=== PATIENT | male | born 1990 | race Caucasian/White ===

== ENCOUNTER 2022-05-14 03:43 | Emergency (ER) | payer OTHER ==
[~2022-05-14] VITALS: Ht 167.6 cm; Wt 54.4 kg
[2022-05-14 05:50] LABS: Source, Urine Voided
[2022-05-14 06:01] LABS: Appearance, Urine Clear (Clear); Bilirubin, Urine Neg (Neg); Blood, Urine 5+ (Neg); Color, Urine Yellow (P-Yellow); Glucose Qualitative, Urine Neg (Neg); Ketones, Urine Neg (Neg); Leukocyte Esterase, Urine Neg (Neg); Nitrite, Urine Neg (Neg); Protein, Urine 1+ (Neg); Urobilinogen, Urine NORM (Normal)
[2022-05-14 06:18] LABS: Red Blood Cells, Urine 25-50 /hpf (0-2); White Blood Cells, Urine 0-2 /hpf (0-5)
[2022-05-14 06:19] LABS: Squamous Epithelial Cells Not Seen /hpf (Few)
[2022-05-14 06:20] LABS: Bacteria Rare /hpf
[2022-05-14 06:21] LABS: Mucus Light (0-Heavy)
[2022-05-14 06:45] LABS: Chloride (POC) 100 mmol/L (98-108); Creatinine (POC) 0.9 mg/dL (0.8-1.3); Glucose (ISTAT POC) 90 mg/dL (70-99); Hemoglobin (POC) 15.3 g/dL (13.5-17.5); Potassium (POC) 3.5 mmol/L (3.5-5.5); Sodium (POC) 138 mmol/L (135-148); Total CO2 (POC) 26 mmol/L (21-32)
[2022-05-14] MEDS ORDERED: HYDR1TAB94 PO (07:32)
[2022-05-14] MEDS ORDERED: TAMS.4ER PO (07:32)
== END 2022-05-14 07:57 | disposition home or self-care (01) ==
LOC: ER 03:43
PROVIDERS: Emergency Medicine; Student in an Organized Health Care Education/Training Program
DX: N20.1 Calculus of ureter (principal); N21.0 Calculus in bladder
CPT/HCPCS: 36415; 74176; 80047; 81001; 85014